=== PATIENT | male | born 1950 | race American Indian/Alaskan Native ===

== ENCOUNTER 2017-05-15 13:06 | Emergency (ER) | payer MEDICARE ==
[2017-05-15 14:12] VITALS: RESP 18
[2017-05-15] MEDS ORDERED: Albuterol-Ipratrop 3 mg / 0.5 (3 ml) UD IH SCH (15:15)
[2017-05-15] MEDS ORDERED: Albuterol-Ipratrop 3 mg / 0.5 (3 ml) UD ONE ×2 (15:22→15:25)
--- NOTE | 2017-05-15 15:22 | C.PDOC ---
History Of Present Illness 66 year old male with PMHx of childhood asthma presents to the ED c/o 3 day history of nasal congestion, wheezing, watery eyes, headache and cough. Patient reports he was a smoker until 5 months ago when he finally quit. Patient did not have the flu shot this year. Patient denies fever, chills, nausea, vomit, diarrhea. Time Seen by Provider: 05/15/17 15:07 Chief Complaint (Nursing): Cough, Cold, Congestion History Per: Patient History/Exam Limitations: no limitations Onset/Duration Of Symptoms: Days Current Symptoms Are (Timing): Still Present Location Of Pain: Throat Sick Contacts (Context): None Associated Symptoms: Cough, Myalgias, Nasal Congestion Recent travel outside of the [place]: No Additional History Per: Patient Past Medical History Reviewed: Historical Data, Nursing Documentation, Vital Signs Vital Signs: Last Vital Signs Temp 98 F 05/15/17 14:10 Pulse 76 05/15/17 14:10 Resp 18 05/15/17 14:10 BP 123/85 05/15/17 14:10 Pulse Ox 98 05/15/17 17:08 - Medical History PMH: Asthma (well controlled ), Diverticulitis Surgical History: No Surg Hx Family History: States: Unknown Family Hx - Social History Hx Tobacco Use: No (quit 5 months ago) Hx Alcohol Use: Yes Hx Substance Use: No - Immunization History Hx Tetanus Toxoid Vaccination: No Hx Influenza Vaccination: No Hx Pneumococcal Vaccination: No Review Of Systems Constitutional: Negative for: Fever, Chills ENT: Positive for: Nose Congestion. Negative for: Nose Discharge Cardiovascular: Negative for: Chest Pain Respiratory: Positive for: Cough, Shortness of Breath Gastrointestinal: Negative for: Nausea, Vomiting Skin: Negative for: Rash Neurological: Negative for: Weakness, Numbness Physical Exam - Physical Exam Appears: Non-toxic, No Acute Distress Skin: Normal Color, Warm, Dry Head: Atraumatic, Normacephalic Eye(s): bilateral: Normal Inspection Ear(s): Bilateral: Normal Nose: No Discharge, Other (congested) Oral Mucosa: Moist Throat: Normal, No Erythema, No Exudate Neck: Normal ROM, Supple Chest: Symmetrical Cardiovascular: Rhythm Regular, No Murmur Respiratory: No Rales, No Rhonchi, Wheezing (B/L ) Extremity: Normal ROM, No Tenderness, Capillary Refill (< 2 seconds), Swelling ( +/- pitting edema) Pulses: Left Dorsalis Pedis: Normal, Right Dorsalis Pedis: Normal Neurological/Psych: Oriented x3, Normal Speech Gait: Steady ED Course And Treatment O2 Sat by Pulse Oximetry: 98 (ON RA) Pulse Ox Interpretation: Normal Medical Decision Making Medical Decision Making: Impression: congestion, wheezing, cough Plan: * EKG * Labs * CXR * Albuterol 3 ml IH * Prednisone 60 mg PO * Nebulizer treatment * Influenza A B Patient reports he has no PMD and refused labs, EKG, CXR and all the work up while in the ED. Disposition Counseled Patient/Family Regarding: Need For Followup, Rx Given - Disposition Referrals: [facility] [Outside] [facility] [Outside] Disposition: HOME/ ROUTINE Disposition Time: 17:04 Condition: STABLE Additional Instructions: Follow up with your doctor or our clinic. Return to the Emergency Department with any further concerns. Prescriptions: Albuterol HFA [Ventolin HFA 90 mcg/actuation (8 g)] 1 puff IH QID PRN #1 puff PRN Reason: Cough Azithromycin 1 tab PO DAILY #6 tab Prednisone [Deltasone] 60 mg PO DAILY #12 tablet Instructions: Acute Bronchitis, Risk Factors for COPD Forms: [facility] ([place]ran), General Discharge Instructions - POA Present On Arrival: None - Clinical Impression Clinical Impression: Bronchospasm - Scribe Statement The provider has reviewed the documentation as recorded by the Scribe Aj Cruz All medical record entries made by the Scribe were at my direction and personally dictated by me. I have reviewed the chart and agree that the record accurately reflects my personal performance of the history, physical exam, medical decision making, and the department course for this patient. I have also personally directed, reviewed, and agree with the discharge instructions and disposition.
[2017-05-15 17:27] VITALS: BP 126/73; PULSE 79; TEMP 98.1; O2SAT 96
== END 2017-05-15 17:15 | disposition home or self-care (01) ==
LOC: C.ER 13:06
DX: J98.01 Acute bronchospasm (principal)